=== PATIENT | female | born 1945 | race Caucasian/White ===

== ENCOUNTER 2019-09-08 17:38 | Emergency (ER) | payer MEDICARE, BC ==
[~2019-09-08] VITALS: Ht 172.7 cm; Wt 72.7 kg
[2019-09-08] MEDS ORDERED: oxymetazoline 15 ML nasal spray NS ONE (19:20)
[2019-09-08 20:12] VITALS: BP 176/79
== END 2019-09-08 20:14 | disposition home or self-care (01) ==
LOC: ER 17:39
DX: R04.0 Epistaxis (principal); E78.00 Pure hypercholesterolemia, unspecified; I10 Essential (primary) hypertension; Z88.0 Allergy status to penicillin
CPT/HCPCS: 99283

== ENCOUNTER 2019-09-10 13:01 | Emergency (ER) | payer MEDICARE, BC ==
[~2019-09-10] VITALS: Ht 172.7 cm; Wt 72.7 kg
[2019-09-10 14:34] VITALS: BP 144/53
== END 2019-09-10 14:37 | disposition home or self-care (01) ==
LOC: ER 13:02
DX: R04.0 Epistaxis (principal); E78.00 Pure hypercholesterolemia, unspecified; I10 Essential (primary) hypertension; Z88.0 Allergy status to penicillin
CPT/HCPCS: 30901; 99284

== ENCOUNTER 2019-09-13 10:33 | Emergency (ER) | payer MEDICARE, BC ==
[~2019-09-13] VITALS: Ht 172.7 cm; Wt 74.0 kg
[2019-09-13 10:43] VITALS: BP 146/70
== END 2019-09-13 11:44 | disposition home or self-care (01) ==
LOC: ER 10:34
DX: R04.0 Epistaxis (principal); E78.00 Pure hypercholesterolemia, unspecified; I10 Essential (primary) hypertension; Z60.2 Problems related to living alone; Z88.0 Allergy status to penicillin
CPT/HCPCS: 99281

== ENCOUNTER 2023-10-02 14:08 | Emergency (ER) | payer MEDICARE, BC ==
[~2023-10-02] VITALS: Ht 170.2 cm; Wt 78.2 kg
[~2023-10-02 14:08] MED LIST: losartan 25mg tablet PO ONE
[2023-10-02 14:24] VITALS: TEMP 97.5
[2023-10-02] MEDS: silver nitrate applicator stick TP ONE (16:40)
[2023-10-02] MEDS: LIDOCAINE 1%/EPI 1:100,000 inj. 10 ML multi-dose vial IJ ONE (16:40)
[2023-10-02] MEDS: losartan 25mg tablet PO ONE (16:45)
[2023-10-02 17:11] LABS: BASOPHILS % (AUTO) 0.5 % (0-1); EOSINOPHILS # (AUTO) 0.1 X10'3 (0-0.9); EOSINOPHILS % (AUTO) 0.8 % (0-6); HEMATOCRIT 44.5 % (35.0-45.0); LYMPHOCYTES % (AUTO) 21.7 % (21-51); MEAN CORPUSCULAR HEMOGLOBIN 30.7 PG (27.0-31.0); MEAN CORPUSCULAR HGB CONC 33.7 g/dL (33.0-36.5); MEAN CORPUSCULAR VOLUME 91.1 FL (78-98); MEAN PLATELET VOLUME 7.9 FL (7.4-10.4); MONOCYTES # (AUTO) 0.6 X10'3 (0-0.9); MONOCYTES % (AUTO) 6.4 % (2-12); NEUTROPHILS # (AUTO) 6.4 X10'3 (1.8-7.7); NEUTROPHILS % (AUTO) 70.6 % (42-75); PLATELET COUNT 206 X10'3 (140-440); RED BLOOD COUNT 4.88 X10'6 (4.20-5.60); RED CELL DISTRIBUTION WIDTH 13.4 % (11.5-14.5)
[2023-10-02 17:23] LABS: ALANINE AMINOTRANSFERASE 24 U/L (12-78); ALBUMIN 3.5 G/DL (3.4-5.0); ALBUMIN/GLOBULIN RATIO 0.8 (1.1-1.5); ALKALINE PHOSPHATASE 78 IU/L (46-116); ANION GAP 6 (8-16); ASPARTATE AMINO TRANSFERASE 26 U/L (10-37); BILIRUBIN,TOTAL 0.4 MG/DL (0.1-1.0); BLOOD UREA NITROGEN 21 MG/DL (7-18); BUN/CREATININE RATIO 19.3 (10.0-20.0); CALCIUM 9.2 MG/DL (8.5-10.1); CHLORIDE 102 MMOL/L (99-107); CREATININE 1.09 MG/DL (0.40-0.90); GLUCOSE 147 MG/DL (70-104); MAGNESIUM 1.8 MG/DL (1.5-2.4); POTASSIUM 4.1 MMOL/L (3.5-5.1); SODIUM 137 MMOL/L (135-145); TOTAL CARBON DIOXIDE 28.6 MMOL/L (24-32); TOTAL PROTEIN 7.9 G/DL (6.4-8.2); eCRCL 41 ML/MIN; eGFR 48 ML/MIN
[2023-10-02] MEDS ORDERED: LOSA-415 PO (18:20)
[2023-10-02 18:58] VITALS: BP 188/90; PULSE 67; RESP 16; O2SAT 97
== END 2023-10-02 19:06 | disposition home or self-care (01) ==
LOC: ER 14:08
DX: R04.0 Epistaxis (principal); I10 Essential (primary) hypertension; E78.00 Pure hypercholesterolemia, unspecified; Z88.0 Allergy status to penicillin; Z79.899 Other long term (current) drug therapy
CPT/HCPCS: 30901; 36415; 80053; 83735; 85025; 99285; A6223